=== PATIENT | female | born 1955 | race Caucasian/White ===

== ENCOUNTER 2021-04-01 09:36 | Outpatient (CLI) | payer MEDICARE, BC | END 2021-04-01 09:37 | disposition home or self-care (01) | LOC: CSHMAMMO 09:36 | PROVIDERS: ATTEND Internal Medicine | DX: N63.20 Unspecified lump in the left breast, unspecified quadrant (principal); R92.8 Other abnormal and inconclusive findings on diagnostic imaging of breast | CPT/HCPCS: 76642; 77066; G0279 ==